=== PATIENT | female | born 1985 | race American Indian/Alaskan Native ===

== ENCOUNTER 2020-09-26 12:09 | Outpatient (CLI) | payer BC ==
[2020-09-26] MEDS ORDERED: LIDOCAINE (1%) 10 MG/1 ML VIAL 20 ML MDV ONE (13:40)
--- NOTE | 2020-09-26 16:02 | Ultrasound Report ---
ULTRASOUND GUIDED LEFT BREAST BIOPSY, 09/26/2020 POSTPROCEDURE LEFT BREAST DIAGNOSTIC MAMMOGRAM CLINICAL INFORMATION / INDICATION: Recent outside imaging showing a left breast nodule, here for biop sy. COMPARISON: Recent outside facility left breast ultrasound and diagnostic mammogram PROCEDURE: Risks, benefits, and indications to the procedure were discussed with the patient in detail, includin g bleeding, infection, hematoma formation, and inadequate tissue sampling. The patient agreed to proc eed with both verbal and written consent. A timeout procedure was performed with two patient identifi ers. The breast was prepped and draped in the usual sterile fashion. Lidocaine 1% was used for local anest hesia. Under direct ultrasound guidance, 5 separate 14-gauge core samples were obtained of the left b reast nodule. A biopsy marker was then placed. Biopsy device was removed and hemostasis achieved wit h manual pressure. A sterile dressing was applied to the skin. The patient tolerated the procedure without difficulty. No complications were encountered. Postbiopsy instructions were discussed with the patient and given in writing. Specimens were sent to pathology. IMPRESSION: 1. Technically successful ultrasound guided left breast biopsy. 2. Postprocedure left-sided mammogram shows satisfactory clip placement. Biopsy results are pending and will be reported in an addendum. Signer Name: Jason Lucas MD Signed: 09/26/2020 3:58 PM Workstation Name: [id number]
== END 2020-09-26 12:10 | disposition home or self-care (01) ==
LOC: US 12:09
PROVIDERS: ATTEND Surgery
DX: N63.22 Unspecified lump in the left breast, upper inner quadrant (principal); R92.8 Other abnormal and inconclusive findings on diagnostic imaging of breast; N64.89 Other specified disorders of breast; Z88.6 Allergy status to analgesic agent; Z88.8 Allergy status to other drugs, medicaments and biological substances
CPT/HCPCS: 88305

== ENCOUNTER 2021-02-12 15:07 | Outpatient (CLI) | payer OTHER ==
--- NOTE | 2021-02-12 16:55 | Ultrasound Report ---
LEFT DIGITAL DIAGNOSTIC MAMMOGRAM WITH CAD CONVENTIONAL, 02/12/2021 LEFT LIMITED BREAST ULTRASOUND CLINICAL INFORMATION / INDICATION: Patient presents for six-month follow-up following benign left br east biopsy demonstrating fibroadenomatoid change. TECHNIQUE: Digital left mammographic imaging was performed. Limited ultrasound was performed. This ex amination was interpreted with the benefit of Computer-Aided Detection (CAD) analysis. COMPARISON: Prior mammograms 09/26/2020 and 08/12/2020, and left breast ultrasound 09/17/2020 FINDINGS: Breast Density: There are scattered areas of fibroglandular density. MAMMOGRAPHIC FINDINGS: There is a stable approximately 3.5 cm oval mass with partially circumscribed and partially obscured margins in the 6:00 position of the left breast, middle depth. A biopsy clip i s seen within the mass. Otherwise, no suspicious mammographic abnormality identified in the left [address]. There has been no significant change compared with the prior examination. ULTRASOUND FINDINGS: Targeted ultrasound evaluation was performed of the area of interest. There is a stable mixed echogenicity mass in the left breast 6:00 position located 6 cm from the nipple, curr ently measuring up to 3.1 x 3.4 x 2.1 cm, previously 3.2 x 2.6 x 2.9 cm. IMPRESSION: 1. Stable oval mass in the left breast at site of prior benign biopsy. No suspicious mammographic or sonographic abnormality identified. Follow up recommendation: Unless otherwise clinically indicated, recommend patient return to routine screening mammography at age 42. BI-RADS Category 2: Benign. A "normal" or negative report should not discourage follow up or biopsy of a clinically significant f inding. A written summary of these findings will be mailed to the patient. The patient will be entered into a mammography reporting system which will generate a reminder letter for the patient's next appointmen t at the appropriate interval. According to the [employer], yearly mammograms are recommended starting at age 40 and continuing as long as a woman is in good health. Breast MRI is recommended for women with an joan roximately 20-25% or greater lifetime risk of breast cancer, including women with a strong family his tory of breast or ovarian cancer and women who have been treated for Hodgkin's disease. Signer Name: Irene Baez MD Signed: 02/12/2021 4:51 PM Workstation Name: [id number]
== END 2021-02-12 15:08 | disposition home or self-care (01) ==
LOC: SPVWC 15:07
PROVIDERS: ATTEND Surgery
DX: N63.42 Unspecified lump in left breast, subareolar (principal)

== ENCOUNTER 2021-06-02 14:39 | Outpatient (CLI) | payer OTHER ==
--- NOTE | 2021-06-02 16:34 | Ultrasound Report ---
ULTRASOUND PELVIS INDICATION / CLINICAL INFORMATION: ABNORMAL UTERINE BLEEDING. TECHNIQUE: Transabdominal. Transvaginal Duplex Color Doppler used: Yes. COMPARISON: None available FINDINGS: UTERUS: 9.3 x 3.6 x 5.6 cm the uterus is inhomogenous with endometrial thickening measuring 11 mm. Sl ightly irregular borders RIGHT ADNEXA: No significant ovarian cyst or mass. Normal color Doppler blood flow. 3.5 x 1.8 x 2.6 LEFT ADNEXA: No significant ovarian cyst or mass. Normal color Doppler blood flow. 4.3 x 2.0 x 3.2 cm URINARY BLADDER: No significant abnormality. FREE FLUID: Trace fluid in the right pelvis ADDITIONAL FINDINGS: None. IMPRESSION: 1. Abnormal appearance of the uterus with thickening of the endometrium measures 11 mm. The endometri um measures thickened and irregular borders with several echogenic foci scattered in the myometrium i s well. Clinical correlation follow-up. 2. Small amount of free fluid in the pelvis. Signer Name: Lionel Kimbrough MD Signed: 06/02/2021 4:30 PM Workstation Name: [id number]
== END 2021-06-02 14:40 | disposition home or self-care (01) ==
LOC: US 14:39
PROVIDERS: ATTEND Family Medicine
DX: N93.9 Abnormal uterine and vaginal bleeding, unspecified (principal)
CPT/HCPCS: 76830; 76856

== ENCOUNTER 2021-07-09 15:13 | Outpatient (CLI) | payer OTHER ==
--- NOTE | 2021-07-09 16:08 | Ultrasound Report ---
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 TECHNIQUE: Targeted ultrasound evaluation was performed of the area of interest. COMPARISON: February 12, 2021 and September 26, 2020 FINDINGS: Ultrasound imaging of the left breast at the 6:00 position, 6 cm from the nipple demonstrates a predo minantly hypoechoic mass measuring up to 2.6 cm, not significant change from prior ultrasounds. IMPRESSION: No sonographic evidence of malignancy. Redemonstrated 2.7 cm mass in the 6:00 position of the left breast. Not changed from prior ultrasounds. Follow up recommendation: Unless otherwise clinically indicated, recommend patient return to routine screening mammography at age 42. BI-RADS Category 2: Benign. A normal or "negative" report should not preclude biopsy or follow-up of a clinically suspicious find ing. Signer Name: Ruy Reyes DO Signed: 07/09/2021 4:04 PM Workstation Name: [id number]
== END 2021-07-09 15:14 | disposition home or self-care (01) ==
LOC: SPVWC 15:13
PROVIDERS: ATTEND Surgery
DX: N63.23 Unspecified lump in the left breast, lower outer quadrant (principal); N60.22 Fibroadenosis of left breast